=== PATIENT | female | born 1990 | race Caucasian/White ===

== ENCOUNTER 2018-12-07 02:19 | Emergency (ER) | payer OTHER ==
--- NOTE | 2018-12-07 02:27 | NUR ---
PT LEFT TRIAGE TO VOMIT IN BATHROOM IN LOBBY.
--- NOTE | 2018-12-07 02:31 | NUR ---
PT FOUND IN LOBBY BATHROOM, STICKING HAND DOWN HER THROAT TO VOMIT.
--- NOTE | 2018-12-07 02:38 | NUR ---
PT C/O ANXIETY ATTACK, HYPERVENTILATING, VOMITING BLOOD. + ETOH. per triage note
[2018-12-07] MEDS ORDERED: LORazepam 2 MG/ML, 1ML ONE (02:45)
[2018-12-07] MEDS ORDERED: PROMETHAZINE 25 MG/ML, 1ML ONE (02:45)
[2018-12-07] MEDS ORDERED: PROMETHAZINE 25 MG/ML, 1ML IM ONE (03:00)
[2018-12-07] MEDS ORDERED: LORazepam 2 MG/ML, 1ML IM PRN (03:00)
--- NOTE | 2018-12-07 03:06 | NUR ---
given med pt is constantly acting vomitting nothing come out . vss hyperventilating
[2018-12-07] MEDS ORDERED: FAMOTIDINE 20 MG/2 ML ONE (03:19)
[2018-12-07 03:26] LABS: BASOPHILS # (AUTO) 0.01 x10^3/uL (0-0.1); BASOPHILS % (AUTO) 0 % (0-1); EOSINOPHILS # (AUTO) 0.01 x10^3/uL (0-0.4); EOSINOPHILS % (AUTO) 0 % (1-7); LYMPHOCYTES # (AUTO) 1.64 x10^3/uL (1-3.4); LYMPHOCYTES % (AUTO) 11 % (22-44); MD NO; MEAN CORPUSCULAR HEMOGLOBIN 32.6 pg (27.0-34.8); MEAN CORPUSCULAR HGB CONC 34.4 g/dL (32.4-35.8); MEAN CORPUSCULAR VOLUME 94.7 fL (80-100); MEAN PLATELET VOLUME 8.5 fL (7.4-10.4); MONOCYTES # (AUTO) 0.25 x10^3/uL (0.2-0.8); MONOCYTES % (AUTO) 2 % (2-9); NEUTROPHILS # (AUTO) 13.39 x10^3/uL (1.8-6.8); NEUTROPHILS % (AUTO) 87 % (42-75); PLATELET COUNT 339 x10^3/uL (130-400); RED BLOOD COUNT 4.54 x10^6/uL (3.82-5.3); RED CELL DISTRIBUTION WIDTH 13.2 % (9.6-15.2)
[2018-12-07] MEDS ORDERED: SODIUM CHLORIDE 0.9% 1,000ML IVBOLUS ONE (03:30)
[2018-12-07] MEDS ORDERED: FAMOTIDINE 20 MG/2 ML IVP ONE (03:30)
[2018-12-07 03:35] LABS: ALANINE AMINOTRANSFERASE 31 U/L (12-78); ALBUMIN 4.2 g/dL (3.4-5.0); ANION GAP 13 mmol/L (5-15); CALCIUM 8.8 mg/dL (8.5-10.1); CHLORIDE 109 mmol/L (98-107); CREATININE 0.99 mg/dL (0.55-1.02)
--- NOTE | 2018-12-07 03:37 | NUR ---
pt constantly requesting ice chips md dr collier at bed side given poc pt is not listing now applied warm measure ( warm blanket with bear hugger ) for comfort measure iv liter of ns is infusing given pepcid but not working at this time
[2018-12-07 03:40] LABS: ALKALINE PHOSPHATASE 42 U/L (45-117); BILIRUBIN,TOTAL 0.4 mg/dL (0.2-1.0); TOTAL PROTEIN 8.2 g/dL (6.4-8.2)
--- NOTE | 2018-12-07 04:04 | NUR ---
finally pt is calm down oxygen sats dropped applied oxygen 2 liters via nc pt is sleeping now
--- NOTE | 2018-12-07 06:00 | NUR ---
pt is still sleeping and waiting for MTF pt is not able to be awake now
--- NOTE | 2018-12-07 07:43 | NUR ---
PT AWAKE, ALERT. TOLLERATING FLUIDS. VSS
[2018-12-07 07:44] VITALS: BP 109/62
--- NOTE | 2018-12-07 07:58 | NUR ---
Patient/Caregiver given discharge instructions and they have confirmed that they understand the instructions. Patient ambulatory with steady gait. TAXI VOUCHER PROVIDED
== END 2018-12-07 07:59 | disposition home or self-care (01) ==
LOC: ED 05:56
DX: F41.1 Generalized anxiety disorder (principal); K29.20 Alcoholic gastritis without bleeding; F10.129 Alcohol abuse with intoxication, unspecified; R06.4 Hyperventilation
CPT/HCPCS: 36415; 80053; 80307; 83690; 84703; 85025; 96361; 96372; 96374; 99284; J2060; J2550; J3490; J7030

== ENCOUNTER 2018-12-14 21:18 | Emergency (ER) | payer OTHER ==
[~2018-12-14] VITALS: Ht 180.3 cm; Wt 90.9 kg
[2018-12-14 21:19] VITALS: BP 126/76
--- NOTE | 2018-12-14 22:08 | NUR ---
PT TO ROOM PACED IN GOWN AND AWAITING ERP AND ORDERS.
--- NOTE | 2018-12-14 23:26 | NUR ---
PT ASLEEP NO URINE SAMPLE YET PT AND FRIEND BOTH AWARE OF NEED FOR SAMPLE
[2018-12-15 00:21] LABS: CULTURE INDICATED? YES; MICROSCOPIC INDICATED
[2018-12-15] MEDS ORDERED: ONDANSETRON ODT 4 MG PO ONE (00:30)
[2018-12-15] MEDS ORDERED: ONDANSETRON ODT 4 MG ONE (00:43)
== END 2018-12-15 01:17 | disposition home or self-care (01) ==
LOC: ED 22:53
DX: N39.0 Urinary tract infection, site not specified (principal); F10.129 Alcohol abuse with intoxication, unspecified; R05 Cough
CPT/HCPCS: 71046; 81001; 81025; 87086; 87147; 93005; 99284; Q0162; Q0177

== ENCOUNTER 2019-04-12 19:40 | Emergency (ER) | payer OTHER ==
[~2019-04-12] VITALS: Ht 180.3 cm; Wt 89.6 kg
[2019-04-12 19:43] VITALS: BP 130/88
--- NOTE | 2019-04-12 20:13 | NUR ---
LUNCH RN: ALLYSON LOVELL AT BEDSIDE EVALUATING PT
[2019-04-12] MEDS ORDERED: ONDANSETRON ODT 4 MG ONE (20:21)
[2019-04-12] MEDS ORDERED: LORazepam 0.5MG TABLET ONE ×2 (20:21→21:35)
[2019-04-12] MEDS ORDERED: MAALOX/HYOSCYAMINE/LIDOCAINE 45 ML BTL ONE (20:21)
--- NOTE | 2019-04-12 20:27 | NUR ---
LUNCH RN: PT MEDICATED PER EMAR. 5 RIGHTS ADDRESSED.
[2019-04-12] MEDS ORDERED: LORazepam 0.5MG TABLET PO ONE ×2 (20:30→22:00)
[2019-04-12] MEDS ORDERED: MAALOX/HYOSCYAMINE/LIDOCAINE 45 ML BTL PO ONE (20:30)
[2019-04-12] MEDS ORDERED: ONDANSETRON ODT 4 MG PO ONE (20:30)
[2019-04-12 20:41] LABS: BASOPHILS # (AUTO) 0.05 x10^3/uL (0-0.1); BASOPHILS % (AUTO) 1 % (0-1); EOSINOPHILS % (AUTO) 1 % (1-7); LYMPHOCYTES # (AUTO) 3.27 x10^3/uL (1-3.4); LYMPHOCYTES % (AUTO) 45 % (22-44); MD NO; MEAN CORPUSCULAR HEMOGLOBIN 31.5 pg (27.0-34.8); MEAN CORPUSCULAR HGB CONC 32.9 g/dL (32.4-35.8); MEAN CORPUSCULAR VOLUME 95.9 fL (80-100); MEAN PLATELET VOLUME 8.4 fL (7.4-10.4); MONOCYTES # (AUTO) 0.28 x10^3/uL (0.2-0.8); MONOCYTES % (AUTO) 4 % (2-9); NEUTROPHILS # (AUTO) 3.61 x10^3/uL (1.8-6.8); NEUTROPHILS % (AUTO) 49 % (42-75); PLATELET COUNT 346 x10^3/uL (130-400); RED BLOOD COUNT 4.65 x10^6/uL (3.82-5.3); RED CELL DISTRIBUTION WIDTH 14.5 % (9.6-15.2)
[2019-04-12 20:49] LABS: ALANINE AMINOTRANSFERASE 30 U/L (12-78); ALBUMIN 3.8 g/dL (3.4-5.0); ANION GAP 11 mmol/L (5-15); CALCIUM 8.1 mg/dL (8.5-10.1); CHLORIDE 112 mmol/L (98-107); CREATININE 0.78 mg/dL (0.55-1.02)
[2019-04-12 20:53] LABS: ALKALINE PHOSPHATASE 42 U/L (45-117); BILIRUBIN,TOTAL 0.3 mg/dL (0.2-1.0); TOTAL PROTEIN 7.5 g/dL (6.4-8.2)
--- NOTE | 2019-04-12 21:25 | NUR ---
at bedside for recheck.
--- NOTE | 2019-04-12 21:40 | NUR ---
Pt verbalized understanding of DC instructions. Father at bedside for safe dc home.
== END 2019-04-12 21:46 | disposition home or self-care (01) ==
LOC: ED 21:40
DX: F10.229 Alcohol dependence with intoxication, unspecified (principal); F41.1 Generalized anxiety disorder
CPT/HCPCS: 36415; 74021; 80053; 83690; 84703; 85025; 99284; Q0162

== ENCOUNTER 2019-09-19 06:32 | Emergency (ER) | payer OTHER ==
[~2019-09-19] VITALS: Ht 180.3 cm; Wt 91.1 kg
--- NOTE | 2019-09-19 07:59 | NUR ---
PT TO ROOM AT THIS TIME
--- NOTE | 2019-09-19 08:06 | NUR ---
FIRST CONTACT WITH PT. PT STATED " I HAD AN ANXIETY ATTACK STARTED FEW HOURS AGO AND I CANT GET IT UNDER CONTROL, AND MY CHEST HURTS ALL OVER AND I CAN'T BREATH", H/X ANXIETY, I'VE HAD INCREASED STRESS AND BEEN DRINKING, USED COCAINE AND PARTYING ALL WEEKEND, TOOK MELATONIN AT 3AM AND NO RELIEF" PT C/O SHAKY/HOT FLUSH WELL. PT'S AOX4. RESPS EVEN AND UNLABORED. ALL MONITORS IN PLACE. CALL LIGHT WITHIN REACH. 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 BF AT BEDSIDE.
--- NOTE | 2019-09-19 08:16 | NUR ---
PT MEDICATED PER EMAR. PT TOLERATED WELL.
--- NOTE | 2019-09-19 08:49 | NUR ---
PT MEDICATED PER EMAR. PT TOLERATED WELL. PT'S AOX4. RESPS EVEN AND UNLABORED.
[2019-09-19 09:25] VITALS: BP 114/58
--- NOTE | 2019-09-19 09:26 | NUR ---
Patient given discharge instructions and they have confirmed that they understand the instructions. Patient ambulatory with steady gait.
== END 2019-09-19 09:27 | disposition home or self-care (01) ==
LOC: ED 09:15
DX: F41.1 Generalized anxiety disorder (principal)
CPT/HCPCS: 93005; 99284; Q0177